=== PATIENT | female | born 1990 | race Caucasian/White ===

== ENCOUNTER 2021-05-22 13:15 | Outpatient (REF) | payer OTHER, SELFPAY ==
[2021-05-25 18:17] LABS: HPV mRNA E6/E7 rflx Not Detected (Not Detected)
== END 2021-05-22 13:16 | disposition home or self-care (01) ==
LOC: HO.LAB 13:15
PROVIDERS: Visit Provider Obstetrics & Gynecology
DX: Z01.419 Encounter for gynecological examination (general) (routine) without abnormal findings (principal); Z11.51 Encounter for screening for human papillomavirus (HPV); R10.2 Pelvic and perineal pain
CPT/HCPCS: 81003; 81025; 87624; 88142

== ENCOUNTER 2021-06-12 12:56 | Outpatient (REF) | payer OTHER, SELFPAY ==
--- NOTE | ~2021-06-12 | US_ITS ---
EXAMINATION: US PELVIS CLINICAL INFORMATION: Pelvic and perineal pain COMPARISON: None TECHNIQUE: Ultrasound of the pelvis is performed using both transabdominal and transvaginal transducers along with Doppler. Transvaginal imaging is performed due to inadequate visualization transabdominally. FINDINGS: Uterus: The uterus is anteverted, anteflexed and measures 9.8 x 3.4 x 4.5 cm The double wall endometrial thickness is 1.2 cm and appears trilaminar. The uterus is smooth in contour and has normal myometrial echogenicity. No visible fibroid. There are small nabothian cysts seen in the cervix. Adnexa: Both ovaries are visualized. There is normal color flow to the adnexa. There is no ovarian torsion. There is no pelvic ascites or fluid collection. Right ovary measures 3.4 x 2.1 x 1.6 cm. Volume 5.8 mL. No focal lesion seen. Left ovary measures 3.2 x 1.7 x 2.0 cm and volume 5.2 mL. No focal lesion seen. US/US pelvic and transvaginal IMPRESSION: Small nabothian cysts in the cervix. The uterus is unremarkable with a trilaminar-appearing endometrium. Unremarkable ovaries.
== END 2021-06-12 12:57 | disposition home or self-care (01) ==
LOC: HO.US 12:56
PROVIDERS: Visit Provider Obstetrics & Gynecology
DX: R10.2 Pelvic and perineal pain (principal)
CPT/HCPCS: 76830; 76856

== ENCOUNTER → 2021-06-26 11:46 | Outpatient (BNVA) | payer OTHER, SELFPAY | PROVIDERS: Visit Provider Obstetrics & Gynecology | DX: Z13.89 Encounter for screening for other disorder (principal) ==